=== PATIENT | female | born 1985 | race Hispanic/Latino ===

== ENCOUNTER 2017-07-12 09:27 | Emergency (ER) | payer MEDICAID ==
[2017-07-12 09:30] VITALS: BMI 26.1
[2017-07-12 09:34] VITALS: O2SAT 100
[2017-07-12] MEDS ORDERED: Amoxicillin-Clav 875-125 mg Tab PO STA (09:56)
[2017-07-12] MEDS ORDERED: Bacitracin Ointment 30 GM TUBE TOP STA (09:57)
[2017-07-12] MEDS ORDERED: Oxymetazoline 0.05% Nasal Spray (30 ml) NS STA (09:59)
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
[2017-07-12] MEDS ORDERED: Oxymetazoline 0.05% Nasal Spray (30 ml) NS ONE (10:17)
[2017-07-12] MEDS ORDERED: Amoxicillin-Clav 875-125 mg Tab PO ONE (10:17)
[2017-07-12] MEDS ORDERED: Bacitracin 500 Units/gm Oint Foilpak UD ONE (10:17)
[2017-07-12 11:09] VITALS: BP 123/71; PULSE 87; RESP 16; TEMP 97.8
--- NOTE | 2017-07-12 11:17 | RAD ---
PROCEDURE: Radiographs of the facial bones HISTORY: injury COMPARISON: None TECHNIQUE: Multiple views of the facial bones were obtained. FINDINGS: There is no acute displaced fracture or bone destruction. The temporomandibular joints are normally located. Bone mineralization is normal. The sella turcica is normal. The visualized paranasal sinuses are clear. IMPRESSION: No acute depressed fracture.
--- NOTE | 2017-07-12 11:24 | RAD ---
PROCEDURE: Left Hip X-ray Radiographs. HISTORY: Injury COMPARISON: None. FINDINGS: BONES: The pelvic ring is intact. There is no acute displaced fracture or bone destruction. Bone alignment and mineralization are normal. JOINTS: Normal. SOFT TISSUES: Normal. OTHER FINDINGS: None. IMPRESSION: No acute displaced fracture or dislocation.
== END 2017-07-12 11:09 | disposition home or self-care (01) ==
LOC: C.ER 09:27
DX: S01.23XA Puncture wound without foreign body of nose, initial encounter (principal); Y04.1XXA Assault by human bite, initial encounter; Y92.89 Other specified places as the place of occurrence of the external cause